=== PATIENT | female | born 1980 | race Two or more races ===

== ENCOUNTER 2016-08-18 06:35 | Emergency (ER) | payer MEDICAID ==
[~2016-08-18] VITALS: Ht 165.1 cm; Wt 65.8 kg
[2016-08-18 07:50] VITALS: BP 109/71
== END 2016-08-18 09:27 | disposition home or self-care (01) ==
LOC: ER 06:43
DX: J06.9 Acute upper respiratory infection, unspecified (principal); F17.210 Nicotine dependence, cigarettes, uncomplicated